=== PATIENT | female | born 1955 | race Caucasian/White ===

== ENCOUNTER 2021-03-21 10:54 | Outpatient (CLI) | payer MEDICARE, SELFPAY ==
[2021-03-21 11:29] LABS: Cholesterol 251 mg/dL (0-200); HDL Direct 63 mg/dL; Triglycerides 101 mg/dL (<150)
[2021-03-21 11:39] LABS: LDL Cholesterol Direct 146 mg/dL
== END 2021-03-21 10:55 | disposition home or self-care (01) ==
PROVIDERS: PCP Family Medicine; Visit Provider Family Medicine
DX: Z13.220 Encounter for screening for lipoid disorders (principal); E78.5 Hyperlipidemia, unspecified
CPT/HCPCS: 36415; 80061